=== PATIENT | female | born 1975 | race Caucasian/White ===

== ENCOUNTER 2016-04-01 06:59 | Day surgery (SDC) | payer OTHER ==
[2016-04-01] VITALS (12 sets, daily range): BP systolic 108–139; BP diastolic 64–88; PULSE 5–97; RESP 14–20; O2SAT 95–98
[~2016-04-01] VITALS: Ht 160 cm; Wt 80.8 kg
[2016-04-01] MEDS: Lactated Ringer's 1,000 ML IV SCH ×2 (05:12→08:56)
--- NOTE | 2016-04-01 06:57 | HP PRE OP ---
[address] [address] PREOPERATIVE HISTORY AND PHYSICAL PATIENT: PADILLA WALLACE : 1975 MR#: [id number] ADMIT: 04/01/2016 JOB ID: [id number] DATE OF ADMISSION: 04/01/2016 IDENTIFICATION: The patient is a 40-year-old, G3, P2, AB 1, woman. CHIEF COMPLAINT: Menorrhagia, dysmenorrhea and suspected endometrial polyp, for surgical intervention. HISTORY OF PRESENT ILLNESS: The patient reports having regular periods although extremely heavy and now becoming longer, lasting seven days. She changes protection every one half hour at times, for at least 2-3 days each period and accidents can occur. There is also significant "cramping like labor" with periods. She has undergone evaluation including with pelvic examinations which have been unremarkable, Pap test which was negative, and biopsy that suggested endometrial polyp and proliferative endometrium. Transvaginal sonography demonstrated no obvious fibroid of concern (possible 1 cm intramural/subserosal fibroid), yet there is likely endometrial polyp, potentially up to 3 cm in size. The patient requested surgical intervention which is appropriate in an effort to improve bleeding and cramping issues. She has been agreeable to hysteroscopic approach, confirmation of polyp if present, polyp removal and also fractional D and C for further endometrial and endocervical assessment. She has understood that there are risks to surgery, which include bleeding, infection, injury to the cervix and uterus (potential perforation), anesthetic risks, etc. All questions have been answered, no guarantees have been stated or implied, and patient has signed informed consent for surgery. In summary, then, this patient with very significant progressive menorrhagia and dysmenorrhea and suspected large endometrial polyp will undergo operative hysteroscopy with MyoSure, polypectomy, and fractional D and C plus NovaSure ablation on April 01, 2016. She knows there is not a guarantee that bleeding problems will resolve although likely. PHYSICAL EXAMINATION: On admission, height 5 feet 3/4 inches, weight 181 pounds. Blood pressure 110/68. Face droop consistent with recent onset of Dumas's palsy. Neck: No thyromegaly. Lungs: Clear to auscultation and percussion. Heart: Regular in rate and rhythm. Abdomen: Nontender. No mass. Note surgical scarring (tubal ligation). Pelvic examination: Vulva, vagina and cervix, no obvious epithelial abnormality. Bimanual examination no obvious uterine or adnexal mass. IMPRESSION: 1. Progressive menorrhagia and dysmenorrhea with suspected large endometrial polyp, for surgical intervention. 2. Reproductive history--Vaginal delivery x2, miscarriage with D and C x1. 3. Surgical history: a. Reproductive history--See prior number. b. Tubal ligation. 4. Pancreatitis history, hospitalized in 2012. 5. Prior Hodgkin lymphoma, treated with radiation and chemotherapy as a child. 6. Hypercholesterolemia history plus high triglyceride (as high as 4000 reportedly). 7. History of abnormal Pap tests, no apparent required treatment, last Pap normal. 8. Intermittent very brief right lateral breast shooting pains, suspect benign, have recommended mammogram. 9. Dumas's palsy of recent onset, treated with prednisone and acyclovir. 10. Recent sinusitis (mid 03/07), treated, subsequent recurrence with retreatment--resolved. MEDICATION USE: 1. Fenofibrate 160 mg p.o. daily. 2. Occasional Aleve, although not during the week preoperatively. MEDICATION ALLERGIES: 1. SULFA. 2. TAPE ALLERGY although cloth tape okay. FAMILY HISTORY: Diabetes (father). PLAN: This patient will be admitted to [facility] for surgery on April 01, 2016.
[~2016-04-01 06:59] MED LIST: FENO130C6 PO; Lactated Ringer's 1,000 ML IV SCH
[2016-04-01] MEDS ORDERED: Propofol 10,000 mCg/mL 20 mL Inj ONE (07:00)
[2016-04-01] MEDS ORDERED: Ondansetron 2 mg/mL 2 mL Inj ONE (07:00)
[2016-04-01] MEDS ORDERED: Dexamethasone 4 mg/mL Inj ONE (07:00)
[2016-04-01] MEDS ORDERED: fentaNYL-PF 50 mCg/mL 2 mL Inj ONE (07:00)
[2016-04-01] MEDS ORDERED: Lactated Ringer's 500 ML IV PRN (08:47)
[2016-04-01] MEDS ORDERED: Lactated Ringer's 1,000 ML IV SCH (08:47)
--- NOTE | 2016-04-01 08:47 | PCM.HPANE ---
Patient Data Surgeon Admitting Provider: Attending Provider:Pedro Estrada MD Primary Care Physician:Kale Uriarte MD Other Provider:Alesia Krishnaingham Anesthesia Reason for Visit Menorrhagia, Endometrial Polyp, Dysmenorrhea Ht/WT & BMI Height (Feet): 5 Height (Inches): 3.00 Weight (Kilograms): 80.8 Body Mass Index 31.00 Allergies Coded Allergies: Sulfa (Sulfonamide Antibiotics) (Verified Allergy, Intermediate, NAUSEA/ VOMITING, 03/31/16) TAPE (Verified Allergy, Unknown, 03/31/16) Past Anesthesia History Anesthesia History: Denies:: Abnormal Airway, Anesthesia Reactions, Difficult Intubation, Fam Anesthesia Reaction, Fam Malignant Hypertherm, Malignant Hyperthermia Diabetes History Hx Diabetes?: No MRSA MRSA: No Medications Hypertension Medication: No Home Meds Incl Beta Karoline: No Reported Medications Fenofibrate,Micronized (Fenofibrate)130 Mg [id number] Mg PO DAILY Ref 0 03/31/16 History History of ENT Problems?: No HEENT History: Positive for:: Sinus Problem (GETTING OVER A SINUS INFECTION) Denies:: Abnormal Airway Difficult Intubation Dysphagia Hearing Problem Hx of Heart Problems?: No Cardiovascular History: Denies:: Atrial Fibrillation Chest Pain Hypertension Pacemaker Valvular Heart Disease Hx of Respiratory Problem?: No Respiratory History: Denies:: Asthma COPD Cough Hemoptysis Pneumonia Tuberculosis Hx Neurologic Problems?: Yes Neurological History: Positive for:: Headaches Denies:: CVA Other Neurological Pertinent: Currently has Dumas's palsy Hx of GI Problems?: No Gastrointestinal History: Positive for:: Gastroesphageal Reflux Rectal Bleeding Denies:: Cirrhosis Diverticulitis Hiatal Hernia Hx of Problems?: No Genitourinary History: Positive for:: Urinary Tract Infection Female Hx: Denies:: Currently Hx Musculoskeletal Problems?: No Musculoskeletal History: Positive for:: Musculoskeletal Trauma (R ARM FX) Denies:: Joint Replacement Hx of Psycho/Social Problems?: No Psycho Social History: Denies:: Anxiety Hx Depression Hx Surgeries?: Yes (TUBAL AND D&C) Hx Any Other Health Problems?: No Other History: Positive for:: Cancer (HODGKINS LYMPHOMA) History Blood Transfusions: Positive for:: Accept Blood Products? Denies:: Blood Transfuse Reaction Blood Transfusions Hx Diabetes: No Hx Alcohol Use: No (RARE)Hx Substance Use: No Smoking Status: Never Smoker Stop/Bang S-Snoring: Do You Snore Loudly: No T-Tired: feel tired, fatigued: No O-Obsered: Observed not breath: No P-Blood Pressure: treated: No B- Body Mass Index > 35 kg/m2: No A- Age over 50: No N- Neck Large Circumference: No G- Gender Male: Yes NEYDA Total Score: 1 NEYDA Risk Assessment: Low Risk, <3 Yes Risk Assessment Category Category 1A: Patient has history of documented sleep apnea, and HAS NOT received any narcotic, sedative or anesthesia administration during this stay. Category 1B: Patient has history of documented sleep apnea, and HAS received any narcotic , sedative or anesthesia administration during this stay Category 2: Patient has SUSPECTED Obstructive Sleep Apnea, and HAS received any narcotic , sedative or anesthesia administration during this stay. Category 3: Patient has SUSPECTED Obstructive Sleep Apnea and HAS NOT received narcotic, sedative or anesthesia administration during this stay. Category 4: Outpatient in Procedural Areas with known sleep apnea or who screen positive for High Risk via the STOP/BANG questionnaire. Exam Exam Vital Signs Vital Signs Date Time Temp Pulse Resp B/P Pulse Ox O2 Delivery O2 Flow Rate FiO2 04/01/16 07:21 35.9 85 16 115/70 96 Room Air General Appearance: Alert, Oriented X3, Cooperative, No Acute Distress HEENT/AIRWAY: MP 2 Lungs: Clear to Auscultation, Normal Air Movement Heart: Exam Unremarkable, Regular Rate/Rhythm, No Murmurs/Rubs/Gallops Meds/Labs/Diagnostics Admission Meds Current Medications Lactated Ringer's (Lr) 1,000 ml @ 100 mls/hr Q10H IV Last administered on 04/01t 05:12; Start 03/31/16 at 09:50 Plan Impression Patient chart reviewed, patient interviewed and anesthestic plan with risks, benefits, and alternatives discussed, and informed consent obtained. NPO Status: 03/31 at 1930 ASA Physical Status: ASA2 Mod Systemic Disease Anesthetic Plan: GA Bene/Risks/Altern/Consents: Yes HP Complete Prior to Induction: Yes Jaquan Chery MD Apr 01, 2016 07:45
[2016-04-01] MEDS ORDERED: HYDROmorphone 1 mg/mL Inj IVPUSH PRN ×2 (08:50→10:45)
[2016-04-01] MEDS ORDERED: Phenylephrine 10,000 mCg/mL Inj IVPUSH PRN (08:50)
[2016-04-01] MEDS ORDERED: MetoCLOpramide 5 mg/mL 2 mL Inj IVPUSH PRN ×2 (08:50→10:45)
[2016-04-01] MEDS ORDERED: EPHEDrine Sulfate 50 mg/mL Inj IVPUSH PRN (08:50)
[2016-04-01] MEDS ORDERED: Ondansetron 2 mg/mL 2 mL Inj IVPUSH PRN ×2 (08:50→10:45)
[2016-04-01] MEDS ORDERED: Labetalol 5 mg/mL 4 mL Inj IV PRN (08:50)
[2016-04-01] MEDS ORDERED: EPHEDrine Sulfate 50 mg/mL Inj IM PRN (08:50)
[2016-04-01] MEDS ORDERED: hydrOXYzine Inj 25 MG/1 mL SDV IM PRN (08:50)
[2016-04-01] MEDS ORDERED: fentaNYL-PF 50 mCg/mL 2 mL Inj IVPUSH PRN (08:50)
[2016-04-01] MEDS ORDERED: hydrALAZINE 20 mg/mL Inj IVPUSH PRN (08:50)
[2016-04-01] MEDS ORDERED: Atropine 0.4 mg/mL Inj IVPUSH PRN (08:50)
--- NOTE | 2016-04-01 10:32 | PCM.ANEP1 ---
Post Anesthesia Phase 1 PACU Phase 1 Assessment Vital Signs Vital Signs Date Time Temp Pulse Resp B/P Pulse Ox O2 Delivery O2 Flow Rate FiO2 04/01/16 10:25 90 14 117/75 95 Nasal Cannula 5 04/01/16 10:20 37 89 15 108/70 95 Nasal Cannula 5 04/01/16 07:21 35.9 85 16 115/70 96 Room Air Anesthetic Administered: GA Level of Alertness: Sleeping, hard to arouse TEJADA's with Equal Strength: Yes Pain: No Nausea or Vomiting: No Airway Device: Oralpharangeal Airway Oxygen Delivery: Nasal Cannula Lungs: Clear to Auscultation, Normal Air Movement Jaquan Chery MD Apr 01, 2016 10:32
--- NOTE | 2016-04-01 10:34 | PCM.ANEP2 ---
Post Anesthesia Evaluation ASA/CMS Post Anesthesia VS in Patient's Normal Range?: Yes Resp Stable; Airway Patent?: Yes CV Function & Hydration Stable: Yes Mental Status Recovered?: Yes Pain control Satisfactory?: Yes N/V Control Satisfactory?: Yes Jaquan Chery MD Apr 01, 2016 10:34
[2016-04-01] MEDS ORDERED: HYDROcodone-APAP 5-325 mg Tablet PO PRN (10:45)
--- NOTE | 2016-04-02 16:30 | PATH ---
SURGICAL PATHOLOGY Attending Physician:Pedro Estrada M.D CASE STATUS: Signed Out PATIENT NAME: PADILLA WALLACE PID: [id number] : 1975 DATE COLLECTED:04/01/2016 16:50 SPECIMEN: 1: Endocervix, Curettage 2: Endometrium, Curettage 3: Endometrium, Biopsy CLINICAL HISTORY: A: ENDOCERVICAL CURETTAGE B: ENDOMETRIAL CURETTAGE C: ENDOMETRIAL POLYPS TISSUE MENORRHAGIA, ENDOMETRIAL POLYP, DYSMENORRHEA FINAL DIAGNOSIS: 1.ENDOCERVICAL CURETTAGE: ENDOCERVICAL TISSUE FRAGMENTS, NEGATIVE FOR DYSPLASIA AND MALIGNANCY. 2.ENDOMETRIAL CURETTAGE: BENIGN PROLIFERATIVE ENDOMETRIUM, NEGATIVE FOR HYPERPLASIA, ATYPIA AND NEOPLASIA. 3.ENDOMETRIAL POLYPS: ENDOMETRIAL POLYPS, MULTIPLE FRAGMENTS. NEGATIVE FOR HYPERPLASIA, ATYPIA AND NEOPLASIA. ICD10 CODE N84.0 GROSS DESCRIPTION: The specimen is received in three formalin filled containers labeled with the patient's name. 1). The specimen is sublabeled "endocervical curettings" and consists of approximately a 0.5 cc aggregate of tissue, mucoid material and blood which are entirely submitted in cassette 1A. 2). The specimen is sublabeled "endometrial curetting" and consists of approximately a 1.5 cc aggregate of tissue, mucoid material and blood which are filtered and entirely submitted in cassette 2A. 3). The specimen is sublabeled "endometrial polyps" and consists of multiple portions of light rm funes tissue which aggregate to 3.5 x 2.0 x 0.4 CM. The specimen is entirely submitted in cassettes 3A, 3B, 3C, 3D. 04/01/2016 DAC MICRO DESCRIPTION: See diagnosis. ICD-9 CODES: CPT CODES: 1: 71639 2: 47770 3: 83003 Electronically Signed Out Mirian Torres MD [facility] [address], [place] [address] Technical component performed at [facility], [facility] [address], [place], [address]
--- NOTE | 2016-04-03 00:33 | OP ---
[address] [address] OPERATIVE REPORT PATIENT: PADILLA WALLACE : 1975 MR#: [id number] ADMIT: 04/01/2016 JOB ID: [id number] DATE OF SURGERY: 04/01/2016 SURGEON: Pedro Estrada MD LANDSCAPE GARDENER: None. ANESTHESIA: General. PREOPERATIVE DIAGNOSIS(ES): 1. Menorrhagia. 2. Dysmenorrhea. 3. Suspected large endometrial polyp (3 cm range). POSTOPERATIVE DIAGNOSIS(ES): 1. Menorrhagia. 2. Dysmenorrhea. 3. Endometrial polyps, larger one at 3+ cm in length, smaller one in the left cornual region at 0.75 to 1 cm size. SURGERY: 1. Operative Hysteroscopy 2. Hysteroscopic Polypectomies 3. Fractional D & C 4. Novasure Ablation FINDINGS: Upon hysteroscopic evaluation, there was noted 3+cm endometrial polyp + up to 1cm additional endometrial polyp. There were no other findings to specifically suggest endometrial hyperplasia or malignancy. At procedure's close each polyp had been fully excised, endometrium and endocervix had been broadly sampled, and bleeding was minimal. It certainly is anticipated that patient will do very well during the postoperative timeframe. We will see how she does from a bleeding standpoint over time, although anticipate it will be greatly improved having removed the polyps, as well as accomplished the endometrial ablation procedure. PROCEDURE IN DETAIL: Patient was placed in supine position on the operating table and general anesthesia was induced. She was then very carefully repositioned into the low dorsal lithotomy position and prepped and draped in the usual sterile manner. Appropriate time-out was then taken. Weighted speculum was then placed posteriorly and a tenaculum on the anterior cervical lip and another on the posterior cervical lip. Uterus was sounded to 10 cm and uterine cavity length determined to be 6.5 cm. The cervix was dilated up to 6 mm and hysteroscopic findings were as noted above. The MyoSure apparatus was then utilized to remove the polyps, a process which was accomplished easily. There was no residual polyp tissue remaining. Broad endometrial curettage was then accomplished, followed by broad endocervical curettage. Samples were then sent to pathology, including thus: 1. Endocervical curettings. 2. Endometrial curettings. 3. Endometrial polypectomies. Novasure Ablation was then easily accomplished in usual fashion, using determined uterine cavity width and length. Uterine Cavity integrity was proven. Bleeding was minimal at procedure's close. All instruments were then removed from the uterus, cervix and vagina, and procedures were complete. Patient was returned to supine position, awakened, and then taken to her room for recovery. ESTIMATED BLOOD LOSS: Less than 25 cc. COMPLICATIONS: None. PROGNOSIS: Good for surgical recovery. MTDD
== END 2016-04-01 23:59 | disposition home or self-care (01) ==
LOC: SAS 06:59
PROVIDERS: ATTEND Obstetrics & Gynecology
DX: N84.0 Polyp of corpus uteri (principal); N94.6 Dysmenorrhea, unspecified; N92.0 Excessive and frequent menstruation with regular cycle
CPT/HCPCS: 58558; J1100; J2250; J2405; J7120